=== PATIENT | female | born 1995 | race Caucasian/White ===

== ENCOUNTER 2018-01-13 18:05 | Emergency (ER) | payer BC ==
--- NOTE | 2018-01-13 19:28 | ED ---
Breast Complaint - HPI Summary HPI Summary: Patient complains of finding lump in her upper lateral left breast x one week.. Lump described as hard, non-mobile. States lump wasn't initially tendered first but has resolved. Denies , breast-feeding, nipple discharge, fever, cough, sore throat, CP, SOB, N/V/D, abdominal pain, change in urinary BM. Medical history is none. - History of Current Complaint Hx Obtained From: Patient Breast Chief Complaint: Breast, Left, Palpable Lump Timing: Constant Breast Associated Signs/Symptoms: Nodule/Mass - Allergy/Home Medications Allergies/Adverse Reactions: Allergies Allergy/AdvReac Type Severity Reaction Status Date / Time No Known Allergies Allergy Verified 01/13/18 18:10 PMH/Surg Hx/FS Hx/Imm Hx Endocrine/Hematology History: Denies: Hx Anticoagulant Therapy Cardiovascular History: Denies: Hx Cardiac Arrest History: Denies: Hx Dialysis Neurological History: Denies: Hx CVA Infectious Disease History: Unable to Obtain/Confirm Infectious Disease History: Denies: Traveled Outside the [place] in Last 30 Days - Social History Alcohol Use: None Substance Use Type: Reports: None Smoking Status (MU): Never Smoked Tobacco Review of Systems Constitutional: Negative Eyes: Negative ENT: Negative Cardiovascular: Negative Respiratory: Negative Gastrointestinal: Negative Genitourinary: Negative Musculoskeletal: Negative Skin: Negative Neurological: Negative Psychological: Normal All Other Systems Reviewed And Are Negative: Yes Physical Exam - Summary Physical Exam Summary: Small hard peanut-sized mass at 2:00 on left lateral upper breast. No dimpling of left breast. No discharge from left nipple. No erythema, tenderness, swelling, deformity noted. Triage Information Reviewed: Yes Vital Signs On Initial Exam: Initial Vitals Temp Pulse Resp BP Pulse Ox 98.1 F 77 14 130/80 100 01/13/18 18:08 01/13/18 18:08 01/13/18 18:08 01/13/18 18:08 01/13/18 18:08 Vital Signs Reviewed: Yes Appearance: Positive: Well-Appearing Skin: Positive: Warm Head/Face: Positive: Normal Head/Face Inspection Eyes: Positive: Normal Neck: Positive: Supple Respiratory/Lung Sounds: Positive: Clear to Auscultation Cardiovascular: Positive: Normal Abdomen Description: Positive: Nontender Musculoskeletal: Positive: Normal Neurological: Positive: Normal Psychiatric: Positive: Normal AVPU Assessment: Alert - Corazon Coma Scale Best Eye Response: 4 - Spontaneous Best Motor Response: 6 - Obeys Commands Best Verbal Response: 5 - Oriented Coma Scale Total: 15 Diagnostics - Vital Signs Vital Signs Temp Pulse Resp BP Pulse Ox 01/13/18 18:08 98.1 F 77 14 130/80 100 - Laboratory Lab Statement: Any lab studies that have been ordered have been reviewed, and results considered in the medical decision making process. Breast Pain Course/Dx - Course Course Of Treatment: Patient complains of finding lump in her upper lateral left breast x one week.. Lump described as hard, non-mobile. States lump wasn' t initially tendered first but has resolved. Denies , breast-feeding, nipple discharge, fever, cough, sore throat, CP, SOB, N/V/D, abdominal pain, change in urinary BM. Medical history is none. Physical exam:Small hard peanut -sized mass at 2:00 on left lateral upper breast. No dimpling of left breast. No discharge from left nipple. No erythema, tenderness, swelling, deformity noted. Vital signs within normal limits and stable. Follow-up with primary care to arrange for outpatient ultrasound to left breast mass. - Diagnoses Provider Diagnoses: Breast mass, left Discharge - Sign-Out/Discharge Documenting (check all that apply): Patient Departure - Discharge Plan Condition: Stable Disposition: HOME Patient Education Materials: Breast Mass (ED) Referrals: No Primary Care Phys,NOPCP [Primary Care Provider] - [facility] [Outside] Additional Instructions: Follow-up with primary care for outpatient ultrasound and further evaluation of breast lump. Return to the ED for any new or worsening symptoms - Billing Disposition and Condition Condition: STABLE Disposition: Home
[2018-01-13 19:54] VITALS: BP 0/0
== END 2018-01-13 20:00 | disposition home or self-care (01) ==
LOC: ED 18:05
DX: N63.22 Unspecified lump in the left breast, upper inner quadrant (principal)
CPT/HCPCS: 99281

== ENCOUNTER 2019-06-24 17:33 | Emergency (ER) | payer BC ==
[2019-06-24 19:05] LABS: ABS Eosinophils 0.3 10^3/ul (0-0.6); ABS Lymphocytes 2.7 10^3/ul (1.0-4.8); ABS Monocytes 0.4 10^3/ul (0-0.8); ABS Neutrophils 4.2 10^3/ul (1.5-7.7); Eosinophil % 3.4 %; Hematocrit 38 % (35-47); Hemoglobin 13.4 g/dL (12.0-16.0); Lymphocyte % 34.9 %; Mean Corpuscular HGB Conc 36 g/dL (31-36); Mean Corpuscular Hemoglobin 31 pg (27-31); Mean Corpuscular Volume 88 fL (80-97); Mean Platelet Volume 9.6 fL (7.4-10.4); Platelet Count 254 10^3/uL (150-450); Red Blood Count 4.29 10^6 /uL (3.70-4.87); Red Cell Distribution Width 13 % (10-15); White Blood Count 7.6 10^3/uL (3.5-10.8)
[2019-06-24 19:16] LABS: INR 0.97 (0.82-1.09)
[2019-06-24 19:21] LABS: Albumin 4.4 g/dL (3.2-5.2); Albumin/Globulin Ratio 1.2 (1-3); BUN/Creatinine Ratio 11.8 (8-20); Calcium 9.5 mg/dL (8.6-10.3); EGFR African American 101.2 (>60); EGFR Non-African American 83.6 (>60); Globulin 3.6 g/dL (2-4); Potassium 3.5 mmol/L (3.5-5.0); Total Bilirubin 0.4 mg/dL (0.2-1.0)
--- NOTE | 2019-06-24 20:33 | ED ---
HPI Chest Pain - HPI Summary HPI Summary: This pt is a 24 Y/O F presenting to [facility] with a CC of mid-sternal CP that is described as sharp and began after exercising on 06/24/2019. She states that if she takes deep breaths her pain is increased and moving her legs in a certain direction also increase her pain. Without deep breaths she states that she has no pain but her pain increases to a 6/10 in severity. She states that she took 2 ibuprofen without relief. She denies any fevers, chills, SOB, headaches, and N /V. She states that she has no pertinent PMHx but has a FHx of HTN and CHF. - History of Current Complaint Chief Complaint: EDChestPainROMI Time Seen by Provider: 06/24/19 19:53 Hx Obtained From: Patient Onset/Duration: Started Days Ago - 1 Timing: Constant Initial Severity: Moderate Current Severity: None Pain Intensity: 6 Pain Scale Used: 0-10 Numeric Chest Pain Location: Mid Sternal Chest Pain Radiates: No Character: Sharp/Stabbing Aggravating Factor(s): Movement, Deep Breaths Alleviating Factor(s): Nothing Associated Signs and Symptoms: Positive: Chest Pain - mid-sternal. Negative: Headaches, Shortness of Breath, Fever, Chills, Nausea, Vomiting - Allergy/Home Medications Allergies/Adverse Reactions: Allergies Allergy/AdvReac Type Severity Reaction Status Date / Time No Known Allergies Allergy Verified 06/24/19 17:39 Home Medications: Home Medications NK [No Home Medications Reported] 06/24/19 [History Confirmed 06/24/19] PMH/Surg Hx/FS Hx/Imm Hx Previously Healthy: Yes Endocrine/Hematology History: Denies: Hx Anticoagulant Therapy Cardiovascular History: Denies: Hx Cardiac Arrest History: Denies: Hx Dialysis Neurological History: Denies: Hx CVA - Cancer History Hx Chemotherapy: No Hx Radiation Therapy: No - Surgical History Surgical History: None - Immunization History Immunizations Up to Date: Yes Infectious Disease History: No Infectious Disease History: Denies: Traveled Outside the [place] in Last 30 Days - Family History Known Family History: Positive: Cardiac Disease - CHF, Hypertension - Social History Alcohol Use: None Hx Substance Use: No Substance Use Type: Reports: None Hx Tobacco Use: No Smoking Status (MU): Never Smoked Tobacco Review of Systems Negative: Fever, Chills Positive: Chest Pain - mid-sternal Negative: Shortness Of Breath Negative: Vomiting, Nausea Negative: Headache All Other Systems Reviewed And Are Negative: Yes Physical Exam - Summary Physical Exam Summary: General: Well-developed, Well-nourished, mildly anxious appearing female. No acute distress. HEENT: Normocephalic, Atraumatic. Eyes: Conjuctiva normal, PERRL. Ears: TMs within normal limits. Nares: (-) discharge, (-) erythema. Oropharynx: Clear, mucous membranes moist, (-) exudates. Neck: Soft, FROM, (-) lymphadenopathy, (-) thyromegaly, (-) JVD. Cardiovascular: Normal sinus rhythm, (-) murmur. Mild tenderness to the L sternal border. Lungs: Clear to auscultation bilaterally (-) wheezes, (-) rales, (-) rhonchi. Abdomen: Soft, non-tender, non-distended, (-) organomegaly, normal bowel sounds. Back: (-) CVA tenderness Extremities: No edema. Skin: Warm, dry, (-) rash. Neuro: Alert and oriented x3, no focal deficits. Psychiatric: Mood normal, affect normal. Triage Information Reviewed: Yes Vital Signs On Initial Exam: Initial Vitals Temp Pulse Resp BP Pulse Ox 99.4 F 70 16 118/72 100 06/24/19 17:37 06/24/19 17:37 06/24/19 17:37 06/24/19 17:37 06/24/19 17:37 Vital Signs Reviewed: Yes Procedures - Sedation Patient Received Moderate/Deep Sedation with Procedure: No Diagnostics - Vital Signs Vital Signs Temp Pulse Resp BP Pulse Ox 06/24/19 17:37 99.4 F 70 16 118/72 100 - Laboratory Lab Results: Lab Results 06/24/19 06/24/19 06/24/19 Range/Units 18:56 18:56 18:56 WBC 7.6 (3.5-10.8) 10^3/uL RBC 4.29 (3.70-4.87) 10^6 /uL Hgb 13.4 (12.0-16.0) g/dL Hct 38 (35-47) % MCV 88 (80-97) fL MCH 31 (27-31) pg MCHC 36 (31-36) g/dL RDW 13 (10-15) % Plt Count 254 (150-450) 10^3/uL MPV 9.6 (7.4-10.4) fL Neut % (Auto) 55.7 % Lymph % (Auto) 34.9 % [place] % (Auto) 5.4 % Eos % (Auto) 3.4 % Baso % (Auto) 0.6 % Absolute Neuts (auto) 4.2 (1.5-7.7) 10^3/ul Absolute Lymphs (auto) 2.7 (1.0-4.8) 10^3/ul Absolute Monos (auto) 0.4 (0-0.8) 10^3/ul Absolute Eos (auto) 0.3 (0-0.6) 10^3/ul Absolute Basos (auto) 0.0 (0-0.2) 10^3/ul Absolute Nucleated RBC 0.0 10^3/ul Nucleated RBC % 0.0 INR (Anticoag Therapy) 0.97 (0.82-1.09) Sodium 136 (135-145) mmol/L Potassium 3.5 (3.5-5.0) mmol/L Chloride 101 (101-111) mmol/L Carbon Dioxide 25 (22-32) mmol/L Anion Gap 10 (2-11) mmol/L BUN 10 (6-24) mg/dL Creatinine 0.85 (0.51-0.95) mg/dL Est GFR ( Amer) 101.2 (>60) Est GFR (Non-Af Amer) 83.6 (>60) BUN/Creatinine Ratio 11.8 (8-20) Glucose 118 H (70-100) mg/dL Calcium 9.5 (8.6-10.3) mg/dL Total Bilirubin 0.40 (0.2-1.0) mg/dL AST 19 (13-39) U/L ALT 15 (7-52) U/L Alkaline Phosphatase 36 (34-104) U/L Troponin I 0.00 (<0.03) ng/mL Total Protein 8.0 (6.4-8.9) g/dL Albumin 4.4 (3.2-5.2) g/dL Globulin 3.6 (2-4) g/dL Albumin/Globulin Ratio 1.2 (1-3) Result Diagrams: 06/24/19 18:56 06/24/19 18:56 Lab Statement: Any lab studies that have been ordered have been reviewed, and results considered in the medical decision making process. - EKG 1735 Cardiac Rate: NL - 75 EKG Rhythm: Sinus Rhythm - [address] Segment: Normal Ectopy: None Summary of EKG Findings: EKG at 173 reveals normal sinus rhythm with rate of 75 BPM, a prolonged MO interval, no ischemic changes. This EKG was reviewed and interpreted by Dr. Rodrigues at 173906/24/[address] Jean at 205106/24/2019. 2109 Cardiac Rate: NL - 77 BPM EKG Rhythm: Sinus Rhythm Summary of EKG Findings: EKG at 2109 reveals normal sinus rhythm with rate of 77 BPM, a prolonged MO interval, no ischemic changes. This EKG was reviewed and interpreted by Dr. Jean at 06/24/20192112. Re-Evaluation - Re-Evaluation First Eval Re-Evaluation Time: 00:00 Change: Improved Comment: Pt states feeling better and is aware of her condition. She states that she has a follow up on July 09 with a new Nurse Recruiter. Chest Pain Course/Dx - Course Course Of Treatment: 24-year-old female presents with left sternal chest pain that started yesterday while working out. She states she was doing planks and felt pain in her chest. She states it's worse with movement. Has not improved at all since yesterday. Has took ibuprofen without relief. Physical exam demonstrates some tenderness along the sternal border on the left chest wall. Workup is essentially negative. While patient was on the monitor however she had 3 separate episodes of Wenckebach. Patient was asymptomatic during those events. 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 She states she has an appointment set up to me and new recovery analyst for this in the next 2 weeks. Discussed with recovery analyst production clerks supervisor and plan was set to discharge patient. Follow-up with cardiology appointment. If that follows through for any reason call our recovery analyst. Follow-up sooner for any worsening symptoms. - Diagnoses Provider Diagnoses: Wenckebach, Chest wall pain - Provider Notifications Discussed Care Of Patient With: Lito F Mauser Time Discussed With Above Provider: 00:19 Instructed by Provider To: Other - Discharge ED - Sign-Out/Discharge Documenting (check all that apply): Patient Departure - discharge - Discharge Plan Condition: Stable Disposition: HOME Patient Education Materials: Heart Palpitations (ED), Bradycardia (ED), Chest Wall Pain (ED) Referrals: [facility] [Outside] - 2 Days [facility] [Outside] - 2 Days Additional Instructions: PLEASE FOLLOW UP WITH THE [facility] OR [facility] IN 1-3 DAYS TO HELP ESTABLISH A TEARER TO ASSIST IN FURTHER TESTINGS. RETURN TO THE EMERGENCY DEPARTMENT FOR ANY NEW OR WORSENING SYMPTOMS. Please keep your scheduled appointment with the recovery analyst on July 09, 2019. - Billing Disposition and Condition Condition: STABLE Disposition: Home - Attestation Statements Document Initiated by Mandy: Yes Documenting Scribe: Justus Pelletier Provider For Whom Shastaibe is Documenting (Include Credential): Michelle Jean MD Scribe Attestation: Justus Maki, scribed for Michelle Jean MD on 06/25/19 at 0618. Scribe Documentation Reviewed: Yes Provider Attestation: The documentation as recorded by the Justus shaw accurately reflects the service I personally performed and the decisions made by me, Michelle Jean MD Status of Scribe Document: Viewed
[2019-06-24] MEDS ORDERED: Ketorolac INJ* 30 MG/ML 1 ML VIAL IV PUSH ONE (20:44)
[2019-06-24] MEDS ORDERED: Ketorolac INJ* 30 MG/ML 1 ML VIAL IM ONE (20:45)
[2019-06-25 00:38] VITALS: BP 124/78
== END 2019-06-25 00:35 | disposition home or self-care (01) ==
LOC: ED 17:33
DX: I44.1 Atrioventricular block, second degree (principal); R07.89 Other chest pain
CPT/HCPCS: 36415; 80053; 84484; 85025; 85610; 93005; 96372; 99283; J1885